=== PATIENT | female | born 2005 | race Caucasian/White ===

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

== ENCOUNTER 2023-11-02 16:49 | Emergency (ER) | payer OTHER, BC ==
[~2023-11-02] VITALS: Ht 154.9 cm; Wt 48.5 kg
[2023-11-02] MEDS ORDERED: Methocarbamol 500 MG Tab PO ONE ×2 (17:20)
[2023-11-02] MEDS ORDERED: Ketorolac Tromethamine 30mg Vial IM ONE (17:20)
[2023-11-02] MEDS ORDERED: Acetaminophen 500 MG Tab PO ONE (17:20)
[2023-11-02 18:00] VITALS: BP 117/74
[2023-11-02] MEDS ORDERED: Robaxin750 MG PO (18:03)
== END 2023-11-02 18:17 | disposition home or self-care (01) ==
LOC: ER 16:49
DX: S16.1XXA Strain of muscle, fascia and tendon at neck level, initial encounter (principal); S29.012A Strain of muscle and tendon of back wall of thorax, initial encounter; V89.2XXA Person injured in unspecified motor-vehicle accident, traffic, initial encounter
CPT/HCPCS: 72040; 72070; 96372; 99284-25; A9270; J1885

== ENCOUNTER → 2025-02-06 | Outpatient (CLI) | payer BC, OTHER ==
[~2025-02-06] MED LIST changes: +Robaxin750 MG PO
[2025-02-06 18:57] LABS: Bacterial Vaginosis PCR Negative (NEGATIVE); Candida Group, PCR NOT DETECTED (NOT DETECT); Candida glabrata-krusei, PCR NOT DETECTED (NOT DETECT)
[2025-02-06 19:27] LABS: Chlamydia Trachomatis Vaginal NOT DETECTED (NOT DETECT); Neisseria Gonorrhoea Vaginal NOT DETECTED (NOT DETECT)
== END ==
LOC: LAB 14:46 → LAB SHORT 14:46
PROVIDERS: Student in an Organized Health Care Education/Training Program
DX: N89.8 Other specified noninflammatory disorders of vagina (principal)
CPT/HCPCS: 81515; 87491; 87591